=== PATIENT | female | born 1960 | race Caucasian/White ===

== ENCOUNTER 2017-02-09 20:53 | Inpatient (IN) | payer MEDICAID ==
[~2017-02-09] VITALS: Ht 160 cm; Wt 81.2 kg
[2017-02-09 21:56] LABS: PLATELET COUNT 100 x10^3mcL (130-400); RED CELL DISTRIBUTION WIDTH 14.5 % (11.5-14.5)
[2017-02-09 22:18] LABS: ATYPICAL LYMPH 3 %; BAND NEUTROPHIL 0 % (0-10); BASOPHIL 0 % (0-2); MONOCYTE 12 % (0-7); SEGMENTED NEUTROPHILS 53 % (37-75)
[2017-02-09 22:30] LABS: CALCIUM 8.7 mg/dL (8.5-10.1); CARBON DIOXIDE 29.6 mmol/L (21-32); CHLORIDE SERUM 106 mmol/L (98-107); CREATININE SERUM 0.8 mg/dL (0.6-1.0); GFR1 > 60 mL/min; GLUCOSE SERUM 91 mg/dL (74-106); POTASSIUM SERUM 3.8 mmol/L (3.5-5.1); SODIUM SERUM 140 mmol/L (136-145)
[2017-02-09 22:35] LABS: ALKALINE PHOSPHATASE 96 U/L (46-116); ALT/SGPT 37 U/L (14-59); AST/SGOT 51 U/L (15-37); BILIRUBIN TOTAL 0.71 mg/dL (0.20-1.00); LIPASE 978 IU/L (73-393); TOTAL PROTEIN, SERUM 7.5 g/dL (6.4-8.2)
[2017-02-09 22:38] LABS: ALBUMIN 3.3 g/dL (3.4-5.0)
[2017-02-09 22:39] LABS: AMYLASE 138 U/L (25-115)
[2017-02-09] MEDS ORDERED: METHADONE HCL10 MG PO (23:20)
[2017-02-10 00:40] VITALS: BP 121/74
[2017-02-10 01:03] VITALS: Ht 160 cm; Wt 81.2 kg
[2017-02-10 01:18] LABS: MAGNESIUM 1.7 mg/dL (1.8-2.4); PHOSPHOROUS 3.6 mg/dL (2.5-4.9)
[2017-02-10 01:19] LABS: CHOLESTEROL/HDL RATIO 2.2
[2017-02-10 01:25] LABS: T3 TOTAL 1.28 ng/mL
[2017-02-10 01:28] LABS: FREE T4 1.18 ng/dL (0.76-1.46); T4(THYROXINE) 9.7 ug/dL (4.7-13.3)
[2017-02-10 06:32] VITALS: BP 103/68
[2017-02-10 06:36] LABS: CALCIUM 8.1 mg/dL (8.5-10.1); CARBON DIOXIDE 26.8 mmol/L (21-32); CHLORIDE SERUM 107 mmol/L (98-107); CREATININE SERUM 0.8 mg/dL (0.6-1.0); GFR1 > 60 mL/min; GLUCOSE SERUM 77 mg/dL (74-106); POTASSIUM SERUM 3.6 mmol/L (3.5-5.1); SODIUM SERUM 138 mmol/L (136-145)
[2017-02-10 07:28] LABS: PLATELET COUNT 75 x10^3mcL (130-400); RED CELL DISTRIBUTION WIDTH 14.6 % (11.5-14.5)
[2017-02-10 07:29] LABS: microscopic required? NO
[2017-02-10 07:44] LABS: urine erythrocyte NEGATIVE (NEGATIVE)
[2017-02-10 07:51] LABS: AMPHETAMINE QUAL UR NONE DETECTED (NEG <=1000)
[2017-02-10 08:59] VITALS: BP 95/60; BP 95/90
[2017-02-10 09:53] LABS: ATYPICAL LYMPH 2 %; BAND NEUTROPHIL 0 % (0-10); BASOPHIL 0 % (0-2); MONOCYTE 12 % (0-7); SEGMENTED NEUTROPHILS 47 % (37-75)
[2017-02-10 09:54] LABS: PLATELET MORPHOLOGY PLATELETS DECREASED
[2017-02-10 13:09] VITALS: BP 105/55
[2017-02-10 17:14] VITALS: BP 106/72
[2017-02-10 21:21] VITALS: BP 119/80
[2017-02-11 05:36] VITALS: BP 118/77
[2017-02-11 06:55] LABS: CHLORIDE SERUM 108 mmol/L (98-107); CREATININE SERUM 0.8 mg/dL (0.6-1.0); GFR1 > 60 mL/min; GLUCOSE SERUM 71 mg/dL (74-106); POTASSIUM SERUM 3.6 mmol/L (3.5-5.1); SODIUM SERUM 139 mmol/L (136-145)
[2017-02-11 07:31] LABS: PLATELET COUNT 75 x10^3mcL (130-400); RED CELL DISTRIBUTION WIDTH 14.7 % (11.5-14.5)
[2017-02-11 08:39] LABS: BAND NEUTROPHIL 0 % (0-10); BASOPHIL 0 % (0-2); MONOCYTE 13 % (0-7); PLATELET MORPHOLOGY PLATELETS DECREASED; SEGMENTED NEUTROPHILS 48 % (37-75)
[2017-02-11 09:40] VITALS: BP 108/75
[2017-02-11 14:13] VITALS: BP 123/60
[2017-02-11 16:01] VITALS: BP 123/60
== END 2017-02-11 16:24 | disposition home or self-care (01) | DRG 249 ==
LOC: ED 20:53 → DU 23:44
PROVIDERS: Emergency Medicine; ADMIT Family Medicine
DX: A08.4 Viral intestinal infection, unspecified (principal); K85.90 Acute pancreatitis without necrosis or infection, unspecified; E44.1 Mild protein-calorie malnutrition; F11.20 Opioid dependence, uncomplicated; E83.42 Hypomagnesemia; F10.10 Alcohol abuse, uncomplicated; E66.9 Obesity, unspecified; Z68.32 Body mass index [BMI] 32.0-32.9, adult
CPT/HCPCS: 80307; 83880; 84439; 87046; 87046-59; 90732; C9113; J2405; J3010; J3475; J7030; Q0092

== ENCOUNTER 2017-09-16 11:18 | Emergency (ER) | payer MEDICAID ==
[~2017-09-16] VITALS: Ht 167.6 cm; Wt 97.5 kg
[~2017-09-16 11:18] MED LIST: METHADONE HCL10 MG PO
[2017-09-16 11:29] VITALS: BP 128/92
== END 2017-09-16 12:21 | disposition home or self-care (01) ==
LOC: ED 11:18
DX: S52.125A Nondisplaced fracture of head of left radius, initial encounter for closed fracture (principal); W01.0XXA Fall on same level from slipping, tripping and stumbling without subsequent striking against object, initial encounter; Y93.89 Activity, other specified; Y92.89 Other specified places as the place of occurrence of the external cause; Y99.8 Other external cause status

== ENCOUNTER 2017-10-25 17:03 | Emergency (ER) | payer MEDICAID ==
[~2017-10-25] VITALS: Ht 160 cm; Wt 101.6 kg
[2017-10-25 17:09] VITALS: Ht 160 cm; Wt 101.6 kg
[2017-10-25 18:38] LABS: BASOPHIL % 0.2 % (0-2)
[2017-10-25 18:46] LABS: CALCIUM 8.7 mg/dL (8.5-10.1); CARBON DIOXIDE 29.1 mmol/L (21-32); CHLORIDE SERUM 106 mmol/L (98-107); CREATININE SERUM 0.9 mg/dL (0.6-1.0); GFR1 > 60 mL/min; GLUCOSE SERUM 141 mg/dL (74-106); POTASSIUM SERUM 3.7 mmol/L (3.5-5.1); SODIUM SERUM 139 mmol/L (136-145)
[2017-10-25 18:50] LABS: ALBUMIN 3.4 g/dL (3.4-5.0); ALKALINE PHOSPHATASE 125 U/L (46-116); ALT/SGPT 44 U/L (14-59); AST/SGOT 37 U/L (15-37); BILIRUBIN TOTAL 0.83 mg/dL (0.20-1.00); LIPASE 294 IU/L (73-393); TOTAL PROTEIN, SERUM 7.8 g/dL (6.4-8.2)
[2017-10-25 18:56] LABS: PLATELET COUNT 86 x10^3mcL (130-400)
[2017-10-25 20:05] VITALS: BP 128/72
== END 2017-10-25 20:05 | disposition home or self-care (01) ==
LOC: ED 17:03
PROVIDERS: Emergency Medicine
DX: N12 Tubulo-interstitial nephritis, not specified as acute or chronic (principal)
CPT/HCPCS: J1885; Q0162

== ENCOUNTER 2018-01-04 10:43 | Emergency (ER) | payer MEDICAID ==
[~2018-01-04] VITALS: Ht 160 cm; Wt 108.4 kg
[2018-01-04 11:25] VITALS: Ht 160 cm; Wt 108.4 kg
[2018-01-04 13:30] VITALS: BP 115/80
== END 2018-01-04 13:30 | disposition home or self-care (01) ==
LOC: ED 10:43
DX: S83.92XA Sprain of unspecified site of left knee, initial encounter (principal); W18.30XA Fall on same level, unspecified, initial encounter; Y93.89 Activity, other specified; Y99.8 Other external cause status; Y92.89 Other specified places as the place of occurrence of the external cause

== ENCOUNTER 2019-12-28 13:30 | Emergency (ER) | payer MEDICAID ==
[~2019-12-28] VITALS: Ht 162.6 cm; Wt 111.1 kg
[2019-12-28 13:56] VITALS: BP 127/71; Ht 162.6 cm; Wt 111.1 kg
== END 2019-12-28 14:45 | disposition home or self-care (01) ==
LOC: ED 13:30
DX: R21 Rash and other nonspecific skin eruption (principal); Z88.7 Allergy status to serum and vaccine; Z98.890 Other specified postprocedural states

== ENCOUNTER 2020-01-09 13:08 | Emergency (ER) | payer MEDICAID ==
[~2020-01-09] VITALS: Ht 160 cm; Wt 110.7 kg
[2020-01-09 13:36] VITALS: Ht 160 cm; Wt 110.7 kg
[2020-01-09 16:15] VITALS: BP 115/40
== END 2020-01-09 19:30 | disposition home or self-care (01) ==
LOC: ED 13:08
DX: G44.209 Tension-type headache, unspecified, not intractable (principal); B34.9 Viral infection, unspecified
CPT/HCPCS: 36415; 87804; J1885; J2765